=== PATIENT | male | born 1970 | race Two or more races ===

== ENCOUNTER 2024-11-27 16:18 | Emergency (ER) | payer MEDICAID, SELFPAY ==
[2024-11-27 16:18] VITALS: BMI 26.2
[2024-11-27 16:30] VITALS: BP 188/104; BP 192/99; PULSE 63; RESP 18; TEMP 36.7; O2SAT 95; BMI 25.5
--- NOTE | 2024-11-27 16:45 | PD.EDSKIN ---
ED Skin Abcess FB-RME/HPI General Chief complaint: Skin/Abscess/Foreign Body Stated complaint: LEFT EYE FOREIGN BODY Time Seen by Provider: 11/27/24 16:39 Arrival date/time: 11/27/24 16:18 RME / HPI RME / HPI narrative: 54-year-old male patient came in for evaluation regarding foreign body sensation, left eye. Patient was helping his brother putting something on the trees, and something went into the left eye, resulting into a foreign body sensation severity moderate. Patient denies any blurry vision denies any headache denies any other complaints incident happened about 2 hours prior to ER visit. Related Data Home Medications ?Medication ?Instructions ?Recorded ?Confirmed lisinopril 40 mg tablet 40 mg DAILY 09/21/23 09/21/23 metformin 1,000 mg tablet 1,000 mg BID 09/21/23 09/21/23 Previous Rx's ?Medication ?Instructions ?Recorded sulfamethoxazole 800 1 tab PO BID #14 tabs 09/21/23 mg-trimethoprim 160 mg tablet (Bactrim DS) ibuprofen 600 mg tablet 600 mg PO Q8H PRN fever or pain 11/29/23 #20 tabs Allergies Allergy/AdvReac Type Severity Reaction Status Date / Time No Known Allergies Allergy Verified 11/27/24 16:20 Review of Systems Review of Systems Narrative Review of Systems: Review of system reviewed and within normal limits except mentioned in HPI ED Exam Narrative Physical exam: VITAL SIGNS: Reviewed. GENERAL APPEARANCE: Alert and interactive, follows commands, no acute distress, HEAD AND FACE: Non-traumatic. ENT: PERRL, pink conjunctivitis, eyelid no trauma, Mucous membrane moist. NECK: Supple, nontender, no nuchal rigidity. CHEST: No tenderness, no crepitus, no paradoxical movement, no retractions. LUNGS: Clear, well ventilated, symmetric, no rales, no wheezing, no ronchi, no stridor, good breath sounds bilaterally. HEART: Regular rate, regular rhythm, no murmur, no gallops. ABDOMEN: Soft, positive bowel sounds, nondistended, no guarding, nontender, no rebound, no masses, RECTAL: Deferred. GENITAL: Deferred. NEUROLOGICAL: Gross motor function intact sensory function intact, Appropriate for age. MUSCULOSKELETAL: low back nontender, full range of motion. EXTREMITIES: Nontender, full range of motion. SKIN: Color pink, dry, no rash, no lacerations, no abrasions, no contusions. LYMPHATICS: Deferred. Course Quality Measures none Orders Category Date Time Status Fluorescein-Benoxin 0.3%-0.4% Med 11/27/24 16:44 Discontinued 2 drop LEFT EYE X1 ONE Ibuprofen Tab [Motrin Tab] Med 11/27/24 16:44 Discontinued 800 mg PO X1 ONE TETRACAINE Op Leonie 0.5% [Pontocaine Op Leonie 0.5%] Med 11/27/24 16:44 Discontinued 1 drop LEFT EYE X1 ONE hydrALAZINE HCL [Apresoline] Med 11/27/24 16:45 Discontinued 25 mg PO X1 ONE Vital Signs Vital signs: Vital Signs Temperature 98.1 F 11/27/24 16:30 Pulse Rate 63 11/27/24 16:30 Respiratory Rate 18 11/27/24 16:30 Blood Pressure 192/99 H 11/27/24 16:30 Pulse Oximetry (%) 95 11/27/24 16:30 Oxygen Delivery Method Room Air 11/27/24 16:30 Skin / Abscess / Foreign Body MDM Narrative MDM Narrative:: 54-year-old male patient came in for evaluation regarding foreign body sensation, left eye. Patient was helping his brother putting something on the trees, and something went into the left eye, resulting into a foreign body sensation severity moderate. Patient denies any blurry vision denies any headache denies any other complaints incident happened about 2 hours prior to ER visit. Eye was examined under the Gomez lamp. Tetracaine ophthalmic drop was administered to the eye and fluorescein strip was applied and was then illustrated under the Gomez lamp. No Abrasion noted, , no foreign body noted, Eye was then irrigated with copious amounts of eye stream. Procedure was well tolerated by patient. Verbalized understanding. Patient stable for discharge home was advised to follow-up with PCP and for referral to eyelet punch operator for persistent eye discomfort. Patient data External records reviewed:: None Clinical information provided by:: patient Social determinants that could affect healthcare access:: none Patient has the following chronic illnesses:: Hypertension, diabetes mellitus How is presenting disease/condition affected by chronic disease/condition?: exacerbated by Evaluation data The following diagnostics were reviewed and interpreted by me:: other (specify) Lab and/or radiology exams considered but not ordered:: none Interpretation Summary: none Medications / Prescriptions Medications or Prescriptions considered but not ordered:: None Medication administrations:: Medication Administration History Discontinued Medications Fluorescein Sodium/Benoxinate HCl (Fluorescein-Benoxin 0.3%-0.4% 1 Drop) 2 drop LEFT EYE X1 ONE Stop: 11/27/24 16:45 Last Admin: 11/27/24 17:01 Dose: 2 drop Documented By: SANGEETHA Comments: USED BY PROVIDER Hydralazine HCl (Hydralazine Hcl 25 Mg Tablet) 25 mg PO X1 ONE Stop: 11/27/24 16:46 Last Admin: 11/27/24 17:01 Dose: 25 mg Documented By: SANGEETHA Ibuprofen (Ibuprofen Tab 400 Mg Tablet) 800 mg PO X1 ONE Stop: 11/27/24 16:45 Last Admin: 11/27/24 17:01 Dose: 800 mg Documented By: SANGEETHA Tetracaine HCl (Tetracaine Pf Op Leonie 0.5% 4 Ml Drpette) 1 drop LEFT EYE X1 ONE Stop: 11/27/24 16:45 Last Admin: 11/27/24 17:00 Dose: 1 drop Documented By: SANGEETHA Comments: USED BY PROVIDER Hydralazine, ibuprofen Consultations Consultation(s) initiated? (list below): No Diagnosis Skin/Abscess Differential Diagnosis: other (Foreign body cornea, no foreign body noted on examination, foreign body sensation eye) Most likely diagnosis given after review of the tests above:: Foreign body sensation eye Admission Indicated Admission indicated?: not indicated Admission Request Was there a request for admission?: No Disposition Plan Disposition Plan: Discharge Discharge Attestation Discharge Attestation: The patient was given an opportunity to ask questions and understood the discharge instructions. Discharge instructions specifically effects, indications for sooner follow up or return to the emergency department, and the expected course of current diagnosis. Patient condition: Stable Discharge Plan Plan Patient Disposition: HOME (Self Care) Discharge Disposition comment: Stable Prescriptions/Referrals Prescriptions/Med Rec: No Action metformin 1,000 mg tablet 1,000 mg BID Patient Comments: take 1 tablet by mouth twice a day lisinopril 40 mg tablet 40 mg DAILY Patient Comments: take 1 tablet by mouth once daily sulfamethoxazole-trimethoprim [Bactrim DS] 800-160 mg tablet 1 tab PO BID Qty: 14 0RF ibuprofen 600 mg tablet 600 mg PO Q8H PRN (Reason: fever or pain) Qty: 20 0RF Referrals: No Primary/Family,Physician [Primary Care Provider] - In 1 week Problem List Clinical Impression: Foreign body sensation, left eye Patient/Caregiver Discharge Instructions Discharge Activity: activity as tolerated Education Materials: How the Eye Works Additional Instructions: Thank you for the opportunity for serving you today. You are stable for discharged . You are advised to: Follow-up with your PCP in 1 to 2 days Return to ED for worsening of symptoms As your PCP to refer you to ships or barges loader if your symptoms is getting worst Print Language: Luxembourgish Stand Alone Forms: Sabina Award Info., Patient Portal Info Letter PA/FORENSIC ANTHROPOLOGIST Supervising Physician PA/FORENSIC ANTHROPOLOGIST Supervising Physician: MD Janell
[2024-11-27] MEDS: TETRACAINE PF OP SOL 0.5% 4 ML DRPETTE 1 DROP LEFT EYE (17:00)
[2024-11-27 17:01] VITALS: BP 178/93; PULSE 64
[2024-11-27] MEDS: IBUPROFEN TAB 400 MG TABLET 800 MG PO (17:01)
[2024-11-27] MEDS: FLUORESCEIN-BENOXIN 0.3%-0.4% 1 DROP 2 DROP LEFT EYE (17:01)
--- NOTE | 2024-11-27 17:33 | PC.NURSE ---
Patient called for discharge at this time not present in the lobby
--- NOTE | 2024-11-27 17:50 | PC.NURSE ---
patients name was called again in the lobby no response
--- NOTE | 2024-11-27 18:01 | PC.NURSE ---
patients name was called in the lobby no response
== END 2024-11-27 18:02 | disposition home or self-care (01) ==
PROVIDERS: Emergency Provider Emergency Medicine
DX: H57.8A2 Foreign body sensation, left eye (principal)
CPT/HCPCS: 99283; Z7110; A9270; Z7610

== ENCOUNTER 2025-03-11 05:47 | Observation (INO) | payer MEDICAID, SELFPAY ==
[2025-03-11] VITALS (7 sets, daily range): BP systolic 128–164; BP diastolic 75–100; PULSE 49–82; RESP 14–99; TEMP 36.3–36.8; O2SAT 98–100; BMI 25.7; BMI 25.0
--- NOTE | 2025-03-11 06:19 | EKG_ITS ---
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
--- NOTE | 2025-03-11 06:26 | XR_ITS ---
Examination: CT abdomen with intravenous contrast CT pelvis with intravenous contrast 2-D coronal reconstructions 2-D sagittal reconstructions Date and time of exam: March 11, 2025, 0729 hours INDICATIONS: Abdominal pain lower abdominal pain nausea beginning today.. CTDI: vol (mGy) 6.29 DLP: (mGycm) 375 Technique: Multiple axial sections of the abdomen and pelvis have been obtained. 64 slice high-resolution scanner used. 3 mm axial sections have been obtained, post intravenous injection 60 cc [id number] 2-D sagittal, coronal reconstructions obtained. Low dose protocols were performed. One or more of the following dose reduction techniques were used; automated exposure control, adjustment of the mA and/or KV according to patient size, use of iterative reconstruction technique. Findings: No visualized liver lesions No gallstones Trace fluid adjacent to the spleen with 7 mm splenic cyst No pancreatic or adrenal mass No renal or ureteral calculi, no hydronephrosis Multiple fluid distended small bowel loops with edema in the mesentery Mild free fluid in the pelvis Prostate calcifications Normal seminal vesicles Contracted urinary bladder Chronic wedging L2, advanced degenerative disc disease L4-L5 No pericecal inflammatory change IMPRESSION: Small bowel obstruction pattern, there is edema in the mesentery, and fluid in the pelvis, early ischemic small bowel not excluded, clinical correlation advised, recommend surgical consultation
[2025-03-11] MEDS: ONDANSETRON ODT 4 MG TABRAP PO (06:29)
[2025-03-11] MEDS: HYDROcodone/APAP 5/325 TABLET 1 TAB PO ×2 (06:30→16:02)
--- NOTE | 2025-03-11 06:34 | EDNOTE_ITS ---
<Statement entered by Kira Zepeda MD - 03/11/25 17:52> I, Kira Zepeda MD, have reviewed the history, exam, and assessment of the patient. I have evaluated the patient independently and agree with the plan of care documented by [ ]. All diagnostic studies were reviewed and discussed. I confirm the diagnosis as documented by the Resident. I was present during the Medical Decision Making for this patient. The patient's plan of care was created between myself and the Resident and consistent with our discussion of the patient's case. ED Abdominal Pain RME/HPI General Chief Complaint: Abdominal Pain Stated complaint: ABDOMINAL PAIN Time seen by provider: 03/11/25 06:17 Arrival date/time: 03/11/25 05:47 RME / HPI RME / HPI narrative: CC: Abdominal Pain Patient is a a 54 year old male with a past medical history of HTN, HLD, and GERD who presented to the emergency via private vehicle with chief complain of abdominal pain. Abdominal pain is diffuse but can be localized to right upper quadrant and right lower quadrant. Positive for nausea. Denied rash on abdomen. No hematochezia or melena in stool. Last bowel movement this morning that appeared soft. No diarrhea. No Melena. No Hematochezia. No previous abdominal surgical history. No colonoscopy. Denied history of illicit drug use or alcohol use. Related Data Home Medications ?Medication ?Instructions ?Recorded ?Confirmed lisinopril 40 mg tablet 40 mg PO DAILY 09/21/2309/28 metformin 1,000 mg tablet 1,000 mg PO BID 09/21/2309/28 Allergies Allergy/AdvReac Type Severity Reaction Status Date / Time No Known Allergies Allergy Verified 11/27/24 16:20 Review of Systems Review of Systems Narrative Review of Systems: General appearance: NO weight change, NO fatigue, NO weakness, NO fever, NO chills, NO night sweats, No cough Skin: NO rash, NO itching, NO sores, NO moles HEENT: NO Trauma, NO nausea, NO vomiting, NO visual changes, NO blurry vision, NO double vision, NO tinnitus, NO vertigo, NO ear discharge, NO rhinorrhea, NO stuffiness, NO sneezing, NO allergy, NO epistaxis. NO Hoarseness, NO sore throat, NO swollen neck. Cardiac: NO Palpitations, NO dyspnea on exertion, NO orthopnea, NO paroxysmal nocturnal dyspnea, NO edema Respiratory: NO Shortness of Breath, NO Wheezing, NO Cough, NO Sputum, NO hemoptysis GI:NO appetite, YES nausea, NO vomiting, NO dysphagia, NO changes in bowel frequency, NO stool color, NO diarrhea, NO constipation, NO hemetemesis, NO hemorrhoids, NO melena, NO hematechezia, Yes abdominal pain, NO jaundice Renal: NO frequency, NO hesitancy, NO urgency, NO hematuria, NO nocturia, NO incontinence MSK: NO muscle weakness, NO gout, NO arthritis, NO muscle stiffness Neuro: NO headaches, NO tremors, NO weakness, NO paralysis, NO seizures, NO loss of consciousness, NO numbness. Hem: NO anemia, NO easy bruising/bleeding, NO petechiae, NO purpura Endo: NO heat/cold intolerance, NO excessive sweating, NO polyuria, NO polydipsia, NO polyphagia, NO thyroid problems, NO diabetes Pysch: NO mood, NO anxiety, NO depression ED Exam Narrative Physical exam: General Appearance: Alert & Oriented X3, well-nourished male who is lying in bed in mild distress HEENT: Skull symmetrical and atraumatic. Conjunctivae pink and moist. Pupils equal, round, reactive to light and accommodation (PERRL). External ear without lesion or discharge. Cardio: Normal Rate and Rhythm with S1 and S2 heart sounds. No murmurs or extra heart sounds auscultated. No bruits on carotid auscultation. No peripheral edema or cyanosis. Lungs: Symmetric with good expansion. Chest and back non-tender. Breath sounds vesicular without crackles, wheezing or rhonchi Abdomen: Diffuse tenderness, right upper quadrant pain, mild distended, hyperactive Reactive Bowel Sounds Neuro: Alert, cooperative, oriented to person, place, and time. Speech clear. CN grossly intact. Upper motor strength 5/5 and Lower motor strength 5/5. Sensation intact. Course Quality Measures none Orders Category Date Time Status Patient Condition Routine Admission 03/11/25 11:[address] in Observation Status Routine Admission 03/11/25 11:50 Active Activity as Tolerated Routine Care 03/11/25 11:[address] Screening NOW Care 03/11/25 06:28 Active EKG (ED ONLY) *Do not use* NOW Care 03/11/25 06:19 Completed IV [Insert IV] NOW Care 03/11/25 07:08 Active NPO NOW Care 03/11/25 10:55 Active Notify provider NEEDED Care 03/11/25 11:49 Active Diet NPO (NOW) Diet 03/11/25 10:[address] abdomen pelvis w con Stat Exams 03/11/25 06:26 Completed EKG (ED Only) Stat Exams 03/11/25 06:19 Draft US gall bladder Stat Exams 03/11/25 08:29 Completed Alcohol, Urine Stat Lab 03/11/25 07:25 Completed Amylase Stat Lab 03/11/25 06:47 Completed CBC Stat Lab 03/11/25 06:47 Completed CRP [C-Reactive Protein] Routine Lab 03/11/25 09:42 Completed Comprehensive Metabolic Panel Stat Lab 03/11/25 06:47 Completed Drug Screen,Urine Stat Lab 03/11/25 07:25 Completed Lactic Acid [Lactate (Lactic Acid)] Stat Lab 03/11/25 09:42 Completed Lipase Stat Lab 03/11/25 06:47 Completed Magnesium Stat Lab 03/11/25 06:47 Completed Partial Thromboplastin Time Stat Lab 03/11/25 06:47 Completed Procalcitonin Routine Lab 03/11/25 09:42 Completed Prothrombin Time with INR Stat Lab 03/11/25 06:47 Completed Troponin I Stat Lab 03/11/25 06:47 Completed Urinalysis, C/S if Indicated Stat Lab 03/11/25 07:25 Completed Urine Culture Stat Lab 03/11/25 07:25 Received HYDROcodone*/APAP 5/325 [[place] 5/325] Med 03/11/25 06:20 Discontinued 1 tab PO X1 ONE Ondansetron Inj [Zofran Inj] Med 03/11/25 07:26 Active 4 mg IVP Q8HR PRN Ondansetron Odt [Zofran Odt] Med 03/11/25 06:22 Discontinued 4 mg PO X1 ONE Piper/Tazo 3.375 gm Premix [Zosyn] Med 03/11/25 09:05 Discontinued 3.375 gm in 50 ml IV X1 Ringers Lactated 1000 ml [Lactated Ringers] 1,000 ml Med 03/11/25 12:00 Active IV 75 mls/hr Ringers Lactated 1000 ml [Lactated Ringers] 1,000 ml Med 03/11/25 07:47 Discontinued IV 999 mls/hr Code Status Routine Oth 03/11/25 11:49 Ordered Oxygen Delivery PRN RT 03/11/25 11:49 Active Vital Signs Vital signs: Vital Signs Temperature 97.4 F 03/11/25 05:50 Pulse Rate 64 03/11/25 05:50 Respiratory Rate 16 03/11/25 05:50 Blood Pressure 134/89 H 03/11/25 05:50 Pulse Oximetry (%) 99 03/11/25 05:50 Oxygen Delivery Method Room Air 03/11/25 05:50 Abdominal Pain MDM Patient data External records reviewed:: [facility] previous records Clinical information provided by:: patient Social determinants that could affect healthcare access:: none Patient has the following chronic illnesses:: HTN and HLD How is presenting disease/condition affected by chronic disease/condition?: uneffected by Evaluation data The following diagnostics were reviewed and interpreted by me:: lab results, radiology exam(s) and EKG tracing(s) Lab and/or radiology exams considered but not ordered:: none Interpretation Summary: concern for SBO given CT images and now hyperactive bowel sounds, patient denied history of emesis this morning, and small soft stool this morning. Elevated WBC. - The patient's plan was discussed with attending Dr. Duane Castillo MD PGY2 Internal Medicine Medications / Prescriptions Medications or Prescriptions considered but not ordered:: none Medication administrations:: Medication Administration History Acetaminophen (Acetaminophen 325 Mg Tablet) 650 mg PO Q6H PRN PRN Reason: Fever >100.4 or Pain 1-6 Stop: 04/10/25 11:50 Hydrocodone Bitart/Acetaminophen (Hydrocodone/Apap 5/325 Tablet) 1 tab PO Q8HR PRN PRN Reason: PAIN SCALE 7-10 (Moderate Stop: 03/16/25 11:50 Last Admin: 03/11/25 16:02 Dose: 1 tab Documented By: Enoxaparin Sodium (Enoxaparin Sod Inj 40 Mg/0.4 Ml Syringe) 40 mg SC QDAY [facility] Stop: 03/26/25 08:59 Lactated Ringer's (Lactated Ringers) 1,000 mls @ 75 mls/hr IV .[id number] [facility] Stop: 03/12/25 11:59 Last Admin: 03/11/25 12:06 Dose: 75 mls/hr Documented By: JUAN MANUEL Ondansetron HCl (Ondansetron Inj 2 Mg/Ml Inj 2 Ml) 4 mg IVP Q8HR PRN; Protocol PRN Reason: NAUSEA OR VOMITING Stop: 04/10/25 07:25 Pantoprazole Sodium (Pantoprazole Inj 40 Mg Vial) 40 mg IVP QDAY HANNA Stop: 04/11/25 08:59 Discontinued Medications Hydrocodone Bitart/Acetaminophen (Hydrocodone/Apap 5/325 Tablet) 1 tab PO X1 ONE Stop: 03/11/25 06:21 Last Admin: 03/11/25 06:30 Dose: 1 tab Documented By: BRIGETTE Lactated Ringer's (Lactated Ringers) 1,000 mls @ 999 mls/hr IV .Q1H1M ONE Stop: 03/11/25 08:47 Last Infusion: 03/11/25 10:58 Dose: Infused Documented By: JUAN MANUEL Admin: 03/11/25 08:19 Dose: 999 mls/hr Documented By: AMBAR Piperacillin/Tazobactam/Dextrose (Zosyn) 3.375 gm in 50 mls @ 100 mls/hr IV X1 ONE; Protocol Stop: 03/11/25 09:34 Last Infusion: 03/11/25 10:58 Dose: Infused Documented By: JUAN MANUEL Admin: 03/11/25 10:01 Dose: 100 mls/hr Documented By: NICHOLAS Ondansetron HCl (Ondansetron Odt 4 Mg Tabrap) 4 mg PO X1 ONE; Protocol Stop: 03/11/25 06:23 Last Admin: 03/11/25 06:29 Dose: 4 mg Documented By: BRIGETTE same above Consultations Consultation(s) initiated? (list below): No Diagnosis Differential diagnosis abdominal pain: abdominal pain, acute appendicitis, diverticulitis, pancreatitis, small bowel obstruction and other Most likely diagnosis given after review of the tests above:: Concern for small bowel obstruction given images and hyperactive bowel sounds. Admission Indicated Admission indicated?: indicated Admission Request Was there a request for admission?: Yes Admission Attestation Admission request attestation: Discussed case with Dr. Muñoz, PGY-3, from Hospitalist service regarding admission. Discussed patients ED course, exam findings, labs, and radiology results. The Hospitalist agrees to accept the patient for admission. Disposition Plan Disposition Plan: Admit Discharge Plan Plan Patient Disposition: Admit Acute Care w/in Hospital Problem List Clinical Impression: Small bowel obstruction
[2025-03-11 06:57] LABS: Basophils # (Auto) 0.1 Thou/mm3 (0.0-0.2); Basophils % (Auto) 0 % (0-2.5); Eosinophils # (Auto) 0.2 Thou/mm3 (0.0-0.5); Eosinophils % (Auto) 1 % (0-10); Hematocrit 41.2 % (41.0-53.0); Hemoglobin 13.4 g/dL (13.5-16.0); Immature Granulocytes Auto 0.05 Thou/mm3 (0.00-0.00); Lymphocytes # (Auto) 2.6 Thou/mm3 (1.0-4.8); Lymphocytes % (Auto) 18 % (10-50); Mean Corpuscular HGB Conc 32.5 g/dl (31.0-37.0); Mean Corpuscular Hemoglobin 27.5 pg (25.0-35.0); Mean Corpuscular Volume 85 fL (80-100); Monocytes # (Auto) 0.9 Thou/mm3 (0.0-0.8); Monocytes % (Auto) 6 % (0-12); Neutrophils # (Auto) 10.5 Thou/mm3 (1.8-7.7); Neutrophils % (Auto) 74 % (37-80); Nucleated Red Blood Cell # 0.00 Thou/mm3 (0.00-0.00); Nucleated Red Blood Cell % 0 /100 WBC (0); Platelet Count 457 Thou/mm3 (140-440); RDW Standard Deviation 42.3 fL (35.1-43.9); Red Blood Count 4.87 Miln/mm3 (4.50-5.90); White Blood Count 14.3 Thou/mm3 (3.8-10.6)
[2025-03-11 07:13] LABS: INR 1.0 (0.9-1.3); Partial Thromboplastin Time 21.9 Seconds (22.0-36.0); Prothrombin Time 10.2 Seconds (9.0-12.2)
[2025-03-11 07:16] LABS: Alanine Aminotransferase 13 U/L (10-49); Albumin, Serum 4.9 gm/dL (3.5-5.0); Albumin/Globulin Ratio 2.2 (1.2-2.2); Alkaline Phosphatase 122 U/L (46-116); Amylase 80 U/L (30-118); Anion Gap 10 (7-16); Aspartate Amino Transferase 15 U/L (0-34); BUN/Creatinine Ratio 17 Ratio (12-20); Bilirubin,Total 0.3 mg/dL (0.3-1.2); Blood Urea Nitrogen 17 mg/dL (9-23); Calcium 10.4 mg/dL (8.3-10.6); Calcium (Corrected) 10.4 mg/dL (8.5-10.1); Carbon Dioxide 29.1 mMol/L (20.0-31.0); Chloride 101 mMol/L (98-107); Creatinine (Component) 1.0 mg/dL (0.6-1.3); Estimated Creatinine Clearance 74.3 mL/min (>60); Globulin 2.2 gm/dL (2.3-3.5); Glucose 207 mg/dL (74-106); Lipase 32 U/L (12-53); Magnesium 2.0 mg/dL (1.6-2.6); Osmolality,Calculated 286 (275-295); Potassium 4.6 mMol/L (3.4-5.1); Sodium 140 mMol/L (136-145); Total Protein 7.1 gm/dL (5.7-8.2); Troponin I < 0.002 ng/mL (0.0-0.045); eGFR > 60 See Note
[2025-03-11 08:13] LABS: Collection Type, Urine Clean Catch
[2025-03-11 08:19] LABS: Bilirubin,Urine Negative (Negative); Blood,Urine Negative (Negative); Clarity,Urine Clear (Clear/Hazy); Color,Urine Yellow (Lt Yel-Yel); Glucose, Urine Negative (Negative); Ketones,Urine Negative (Negative); Leukocyte Esterase,Urine Positive (Negative); Nitrite,Urine Negative (Negative); PH,Urine 5.5 (5.0-7.0); Protein,Urine 1+ (Neg - Trace); RBC,Urine 3 /hpf (0-3); Specific Gravity,Urine 1.036 (1.001-1.035); Squamous Epithelial Cell,Urine < 1 /hpf (0-5); Urobilinogen,Urine Negative mg/dL (0.0-1.0); WBC,Urine 12 /hpf (0-5)
[2025-03-11] MEDS: RINGERS LACTATED 1000 ML 1,000 ML 999 ML IV (08:19)
[2025-03-11 08:21] LABS: Culture Indicated,Urine Yes
--- NOTE | 2025-03-11 08:29 | XR_ITS ---
Examination: Abdomen sonogram, Limited Date and time of exam: 03/11/2025, 9:06 a.m. INDICATION: Right upper quadrant pain today. Comparison same day CT abdomen pelvis Technique: Real-time hassan scale transabdominal sonographic images of the upper abdomen obtained. Findings: Gallbladder: The gallbladder is well distended which could be due to fasting state. Normal variant phrygian cap identified. No gallstones identified. Likely artifact mimicking sludge on several images. No significant gallbladder wall thickening or pericholecystic fluid. No reported pain with direct transducer pressure over the gallbladder. The common bile duct measures 3 cm. No abnormal intrahepatic bile duct dilatation. Hepatic size is within normal limits, measured at 14.8 cm in length. The liver demonstrates mild diffuse increased echotexture. The liver exhibits smooth margins. No discrete focal lesion identified. Color Doppler demonstrates patency of the main portal vein with normal hepatopetal flow. Color Doppler shows flow in hepatic veins and IVC as well. Limited views of the pancreas show no focal or diffuse abnormalities. The right kidney appears normal. IMPRESSION: Negative ultrasound for cholelithiasis, acute cholecystitis or biliary ductal obstruction. Mild diffusely increased hepatic echotexture is nonspecific but most likely policy services representative of hepatic steatosis. No evidence for hepatomegaly or liver mass.
[2025-03-11 08:30] LABS: Alcohol, Urine Negative (Negative); Amphetamine/Methamp Scrn,U Negative (Negative); Barbiturate Screen,Urine Negative (Negative); Benzodiazepines Screen,Urine Negative (Negative); Benzoylecgonine Screen, Ur Negative (Negative); Fentanyl Screen,Urine Negative (Negative); Opiate Screen,Urine Negative (Negative); THC Screen,Urine Negative (Negative)
[2025-03-11 09:45] LABS: Lactate (Lactic Acid) 1.4 mMol/L (0.4-2.0)
[2025-03-11] MEDS: PIPER/TAZO 3.375 GM PREMIX 3.375 GM/50 ML BAG IV (10:01)
[2025-03-11 10:21] LABS: C-Reactive Protein < 0.5 mg/dL (0.0-0.9); Procalcitonin 0.04 ng/ml (0.0-0.49)
--- NOTE | 2025-03-11 11:56 | XR_ITS ---
X-RAY SMALL BOWEL SINGLE CONTRAST HISTORY: SBO, follow-up Study date and time: 03/11/2025 at 12:35 p.m. COMPARISON: Same-day CT abdomen pelvis FINDINGS: 5 AP supine images of the abdomen were obtained after contrast ministration, one immediately after contrast, 2 at 30 minutes and 2 at 1 hour. Immediate postcontrast images show normal opacification of stomach, duodenum and proximal jejunum, without focal obstructing lesion or ulcer. In the background, there is moderate to large extensive colonic fecal matter. Images obtained at 30 minutes show progression of contrast in small bowel, visualized in the right lower quadrant and pelvis, with dilated bowel loops identified in these regions, correlating with the preceding CT findings. At 1 hour, there is no significant change in the size and extent of opacified bowel in the lower abdomen and pelvis, but the contrast from the gastric fundus has emptied and there is more small bowel opacification in the mid abdomen. Contrast opacified distended small bowel obscures evaluation of the proximal ascending colon. Follow-up imaging is recommended. IMPRESSION: Findings consistent with partial small bowel obstruction. Contrast is not yet definitively visualized within the ascending colon at 1 hour. A repeat 1 hour abdominal radiograph is recommended. This report was generated using speech recognition software.
[2025-03-11] MEDS: RINGERS LACTATED 1000 ML 1,000 ML 75 ML IV (12:06)
--- NOTE | 2025-03-11 14:13 | ESHP_ITS ---
<Statement entered by Marline Muñoz MD - 03/12/25 07:37> Patient was seen and examined by me personally. I have directly supervised and reviewed documentation by the team resident and agree with its findings with any exceptions or additional findings as below. Plan of care was discussed with the attending, Dr. Perez. New admission today. Patient is a 54-year-old male with hypertension, eoh-wfjyhze-rhpnhibsm T2DM, hyperlipidemia, and GERD who presented on 03/11/25 with a chief complaint of abdominal pain. CT abdomen/pelvis showed small bowel obstruction pattern. Discussed with general surgery Dr. Nuñez, clinically the patient does not appear to be having ischemic bowel. Patient had a bowel movement this morning and states he is passing gas. Will admit for observation and complete gastrograffin series. Marline Muñoz, PGY-3 Documentation for date of: 03/11/25 HPI History of Present Illness History of present illness: Patient is a 54-year-old male with a PMH of hypertension, uwr-qdhklso-smhmeavfm T2DM, hyperlipidemia, and GERD who presented on 03/11/25 with a chief complaint of abdominal pain that started earlier in the morning. At the time of interview, patient actually reported feeling much better and rated his abdominal pain as a 0 out of 10 in severity (was a 10 out of 10 upon admission). Patient states that his previous abdominal pain was primarily localized to the lower abdominal quadrants and characterized as constant and pressured in nature. He also endorses vomiting twice before coming to the ED and that his last bowel movement had been around 5 in the morning which produced soft, brown, and low- volume stool. While waiting in the ED, patient reports that he has been able to pass flatus. He denies any other symptoms or complaints. PMH: As above PSH: None Medications: Metformin 1000 mg p.o. twice daily, lisinopril 40 mg p.o. daily Allergies: NKDA FH: Mother from colon cancer, and dad passed from an unspecified cardiac condition during COVID, both parents had a history of T2DM and hypertension SH: No significant drinking, smoking, or recreational drug use history In the ED, vitals showed: BP 134/89 HR 64 RR 16 Temp 97.4 SpO2 99% on room air CBC showed WBC 14.3, hemoglobin 13.4, platelet count 457. Coagulation panel was WNL. CMP showed blood glucose 207, corrected calcium 10.4, but was otherwise WNL (including amylase, lipase, and procalcitonin). UA showed 1+ protein, positive leukocyte esterase, 12 urine WBC. UDS was grossly negative. Imagin/5 CTAP showed edema in the mesentery and fluid in the pelvis, possibly suggestive of small bowel obstruction. 03/11 EKG showed sinus bradycardia HR 53 and normal QTc 389. 03/11 gallbladder ultrasound showed mild diffusely increased hepatic echotexture (nonspecific but may represent hepatic steatosis), but was negative for cholelithiasis, acute cholecystitis, biliary ductal obstruction, hepatomegaly, or liver mass. 03/11 small bowel x-ray showed findings consistent with partial small bowel obstruction 1 hour into the study. 03/11 abdominal x-ray showed that most of the contrast had reached the colon after 2.5 hours which is negative for small bowel obstruction. In the ED, patient was given Zofran p.o., Erin p.o., Zosyn IV, and 2 L LR fluid. Patient was admitted for the observation and possible management of abdominal pain concerning for small bowel obstruction. Review of Systems Review of Systems Systems Reviewed: All systems reviewed, normal except as documented Exam Vital Signs Temp Pulse Resp BP Pulse Ox O2 Del Method 97.7 F 64 19 159/100 H 100 Room Air 03/11/25 13:03 03/11/25 13:03 03/11/25 13:03 03/11/25 13:03 03/11/25 13:03 03/11/25 13:03 Narrative Exam General: A/O x3, no acute distress. Skin: Warm, dry, intact, no obvious rash. Head: Normocephalic, atraumatic. Eyes: EOMI. Anicteric, vision grossly intact. Ears: No ear pain, no ear discharge, Hearing grossly intact. Nose: No nasal discharge. Mouth/Throat: Oral mucosa moist. No obvious lesions in oropharynx. Cardiovascular: Slightly bradycardic rate and normal rhythm, no murmur, no JVD or carotid bruits. +S1/S2. Respiratory: Bilateral lungs are clear to auscultation, respirations unlabored, no crackles, no wheezing. No accessory muscle use. Gastrointestinal: Hyperactive bowel sounds. Tenderness to palpation of lower abdominal quadrants, particularly the right lower quadrant. Guarding noted. Soft, non-distended, no palpable masses. No rebound tenderness. Peristalsis present. Extremities: Symmetrical, no significant deformities. No edema, no cyanosis, no clubbing. 2+ radial pulse bilaterally, 2+ posterior tibial pulse bilaterally. Neuro: No focal deficits observed. Conversant, moving all extremities. No overt cerebellar signs/incoordination. Psychiatric: Cooperative, appropriate affect. Results: Labs 03/11/25 06:47 03/11/25 06:47 Labs: Short CBC 03/11/25 Range/Units 06:47 WBC 14.3 H (3.8-10.6) Thou/mm3 Hgb 13.4 L (13.5-16.0) g/dL Hct 41.2 (41.0-53.0) % Plt Count 457 H (140-440) Thou/mm3 BMP 03/11/25 06:47 Sodium 140 Potassium 4.6 Chloride 101 Carbon Dioxide 29.1 BUN 17 Creatinine 1.0 Glucose 207 H Calcium 10.4 Cardiac Enzymes 03/11/25 Range/Units 06:47 Troponin I < 0.002 (0.0-0.045) ng/mL Liver Function 03/11/25 Range/Units 06:47 Total Bilirubin 0.3 (0.3-1.2) mg/dL AST 15 (0-34) U/L ALT 13 (10-49) U/L Alkaline Phosphatase 122 H (46-116) U/L Albumin 4.9 (3.5-5.0) gm/dL Urine 03/11/25 Range/Units 07:25 Urine Color Yellow (Lt Yel-Yel) Urine Clarity Clear (Clear/Hazy) Urine pH 5.5 (5.0-7.0) Ur Specific [place] 1.036 H (1.001-1.035) Urine Protein 1+ A (Neg - Trace) Urine Glucose (UA) Negative (Negative) Quality Measures Quality Measures none Medications Home Medications and Allergies Home Medications ?Medication ?Instructions ?Recorded ?Confirmed ?Type lisinopril 40 mg tablet 40 mg PO DAILY 09/21/2309/28 History metformin 1,000 mg tablet 1,000 mg PO BID 09/21/2309/28 History Allergies Allergy/AdvReac Type Severity Reaction Status Date / Time No Known Allergies Allergy Verified 11/27/24 16:20 Visit Medications Acetaminophen (Acetaminophen 325 Mg Tablet) 650 mg PO Q6H PRN PRN Reason: Fever >100.4 or Pain 1-6 Stop: 04/10/25 11:50 Hydrocodone Bitart/Acetaminophen (Hydrocodone/Apap 5/325 Tablet) 1 tab PO Q8HR PRN PRN Reason: PAIN SCALE 7-10 (Moderate Stop: 03/16/25 11:50 Enoxaparin Sodium (Enoxaparin Sod Inj 40 Mg/0.4 Ml Syringe) 40 mg SC QDAY [facility] Stop: 03/26/25 08:59 Lactated Ringer's (Lactated Ringers) 1,000 mls @ 75 mls/hr IV .[id number] HANNA Stop: 03/12/25 11:59 Last Admin: 03/11/25 12:06 Dose: 75 mls/hr Ondansetron HCl (Ondansetron Inj 2 Mg/Ml Inj 2 Ml) 4 mg IVP Q8HR PRN; Protocol PRN Reason: NAUSEA OR VOMITING Stop: 04/10/25 07:25 Pantoprazole Sodium (Pantoprazole Inj 40 Mg Vial) 40 mg IVP QDAY [facility] Stop: 04/11/25 08:59 Discontinued Medications Hydrocodone Bitart/Acetaminophen (Hydrocodone/Apap 5/325 Tablet) 1 tab PO X1 ONE Stop: 03/11/25 06:21 Last Admin: 03/11/25 06:30 Dose: 1 tab Lactated Ringer's (Lactated Ringers) 1,000 mls @ 999 mls/hr IV .Q1H1M ONE Stop: 03/11/25 08:47 Last Infusion: 03/11/25 10:58 Dose: Infused Piperacillin/Tazobactam/Dextrose (Zosyn) 3.375 gm in 50 mls @ 100 mls/hr IV X1 ONE; Protocol Stop: 03/11/25 09:34 Last Infusion: 03/11/25 10:58 Dose: Infused Ondansetron HCl (Ondansetron Odt 4 Mg Tabrap) 4 mg PO X1 ONE; Protocol Stop: 03/11/25 06:23 Last Admin: 03/11/25 06:29 Dose: 4 mg Assessment & Plan Plan Patient is a 54-year-old male with a PMH of hypertension, phh-rprdyav-minytixap T2DM, hyperlipidemia, and GERD who presented on 03/11/25 with a chief complaint of abdominal pain that started earlier in the morning. Patient was admitted for the observation and possible management of abdominal pain concerning for small bowel obstruction. 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 and characterized as constant and pressured in nature Endorsed vomiting twice prior to arriving in the ED and that his last bowel movement had been around 5 in the morning which was productive of soft, brown, and low-volume stool Endorsed being able to pass flatus while in the ED as well as resolution of the abdominal pain by the time of this data analyst report writer's interview Dx: -03/11 CTAP showed findings possibly suggestive of small bowel obstruction but 03/11 small bowel series was ultimately negative for small bowel obstruction Rx: -Pain control as needed (but issue has seemingly resolved) #Hql-zdhllml-mnnwpjysh T2DM 03/11 admission blood glucose 207, on home metformin 1000 mg p.o. twice daily Rx: -Will consider starting insulin sliding scale if patient's blood glucose becomes uncontrolled #Hypertension 03/11 admission BP 134/89, on home lisinopril 40 mg p.o. daily Patient has largely been normotensive this admission Rx: -Will consider restarting home lisinopril 40 mg p.o. daily if blood pressures become uncontrolled #Leukocytosis 03/11 admission WBC 14.3, likely reactive secondary to acute pain from partial small bowel obstruction Rx: -Continue to monitor CBC Hospital Management: Disposition: Admitted for the observation and possible management of abdominal pain concerning for small bowel obstruction Diet: NPO GI Prophylaxis: Protonix 40 mg IV daily Bowel Prophylaxis: None DVT Prophylaxis: Lovenox 40 mg SC daily CODE STATUS: Full Code I have examined the patient and conferred with my attending, Dr. Perez, and my senior resident, Dr. Muñoz, regarding them. Christiano Horton, DO PGY-1 Internal Medicine
--- NOTE | 2025-03-11 15:00 | XR_ITS ---
Examination: Abdomen AP single view Technique: AP portable supine abdomen, single view Exam date and time: March 11, 2025, 1455 hours INDICATIONS: Abdominal pain and distention this week, 2 1/2-hour delay film post small bowel series today FINDINGS: Most of the contrast in the colon IMPRESSION: Negative for small bowel obstruction
--- NOTE | 2025-03-11 15:26 | PC.NURSE ---
Handoff report given to Cathy ARRIOLA from med-surg. Pt aware of admission to floor. 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
[2025-03-11] MEDS: ACETAMINOPHEN 325 MG TABLET 650 MG PO (19:55)
[2025-03-12] VITALS: BP 123/79; PULSE 67; RESP 17; TEMP 37.3; O2SAT 97
[2025-03-12] MEDS: HYDROcodone/APAP 5/325 TABLET 1 TAB PO (00:16)
[2025-03-12] MEDS: RINGERS LACTATED 1000 ML 1,000 ML 75 ML IV (00:18)
[2025-03-12 04:00] VITALS: BP 120/72; PULSE 56; RESP 16; TEMP 37.2; O2SAT 99
[2025-03-12 06:53] LABS: Alanine Aminotransferase 10 U/L (10-49); Albumin, Serum 4.0 gm/dL (3.5-5.0); Albumin/Globulin Ratio 2.2 (1.2-2.2); Alkaline Phosphatase 89 U/L (46-116); Anion Gap 7 (7-16); Aspartate Amino Transferase 14 U/L (0-34); BUN/Creatinine Ratio 11 Ratio (12-20); Bilirubin,Total 0.4 mg/dL (0.3-1.2); Blood Urea Nitrogen 9 mg/dL (9-23); Calcium 9.0 mg/dL (8.3-10.6); Calcium (Corrected) 9.0 mg/dL (8.5-10.1); Carbon Dioxide 29.9 mMol/L (20.0-31.0); Chloride 105 mMol/L (98-107); Creatinine (Component) 0.8 mg/dL (0.6-1.3); Estimated Creatinine Clearance 92.9 mL/min (>60); Globulin 1.8 gm/dL (2.3-3.5); Glucose 111 mg/dL (74-106); Osmolality,Calculated 282 (275-295); Potassium 4.1 mMol/L (3.4-5.1); Sodium 142 mMol/L (136-145); Total Protein 5.8 gm/dL (5.7-8.2); eGFR > 60 See Note
[2025-03-12 07:55] LABS: Basophils # (Auto) 0.1 Thou/mm3 (0.0-0.2); Basophils % (Auto) 1 % (0-2.5); Eosinophils # (Auto) 0.3 Thou/mm3 (0.0-0.5); Eosinophils % (Auto) 4 % (0-10); Hematocrit 34.7 % (41.0-53.0); Hemoglobin 11.1 g/dL (13.5-16.0); Immature Granulocytes Auto 0.01 Thou/mm3 (0.00-0.00); Lymphocytes # (Auto) 2.0 Thou/mm3 (1.0-4.8); Lymphocytes % (Auto) 30 % (10-50); Mean Corpuscular HGB Conc 32.0 g/dl (31.0-37.0); Mean Corpuscular Hemoglobin 27.2 pg (25.0-35.0); Mean Corpuscular Volume 85 fL (80-100); Monocytes # (Auto) 0.5 Thou/mm3 (0.0-0.8); Monocytes % (Auto) 7 % (0-12); Neutrophils # (Auto) 3.9 Thou/mm3 (1.8-7.7); Neutrophils % (Auto) 58 % (37-80); Nucleated Red Blood Cell # 0.00 Thou/mm3 (0.00-0.00); Nucleated Red Blood Cell % 0 /100 WBC (0); Platelet Count 419 Thou/mm3 (140-440); RDW Standard Deviation 42.0 fL (35.1-43.9); Red Blood Count 4.08 Miln/mm3 (4.50-5.90); White Blood Count 6.7 Thou/mm3 (3.8-10.6)
[2025-03-12 07:58] VITALS: BP 137/81; PULSE 52; RESP 18; TEMP 37.2; O2SAT 97
[2025-03-12] MEDS: ENOXAPARIN SOD INJ 40 MG/0.4 ML SYRINGE SC (08:01)
--- NOTE | 2025-03-12 16:20 | PD.RESPRO ---
Documentation for date of: 03/12/25 Exam Vital Signs Temp Pulse Resp BP Pulse Ox O2 Del Method 98.9 F 52 L 18 137/81 H 97 Room Air 03/12/25 07:58 03/12/25 07:58 03/12/25 07:58 03/12/25 07:58 03/12/25 07:58 03/12/25 07:58 Objective Labs 03/12/25 07:22 03/12/25 05:52 Labs: Laboratory Results - last 24 hr 03/12/25 03/12/25 05:52 07:22 WBC 6.7 D RBC 4.08 L Hgb 11.1 L D Hct 34.7 L MCV 85 MCH 27.2 MCHC 32.0 RDW Std Deviation 42.0 Plt Count 419 D Neut % (Auto) 58 Lymph % (Auto) 30 [place] % (Auto) 7 Eos % (Auto) 4 Baso % (Auto) 1 Neut # (Auto) 3.9 Lymph # (Auto) 2.0 [place] # (Auto) 0.5 Eos # (Auto) 0.3 Baso # (Auto) 0.1 Immature Gran # (Auto) 0.01 H Absolute Nucleated RBC 0.00 Immature Gran % 0 Nucleated RBC % 0 Sodium 142 Potassium 4.1 D Chloride 105 Carbon Dioxide 29.9 Anion Gap 7 BUN 9 Creatinine 0.8 Estim Creat Clear Calc 92.9 eGFR > 60 BUN/Creatinine Ratio 11 L Glucose 111 H D Calculated Osmolality 282 Calcium 9.0 Corrected Calcium 9.0 Total Bilirubin 0.4 AST 14 ALT 10 Alkaline Phosphatase 89 D Total Protein 5.8 Albumin 4.0 D Globulin 1.8 L Albumin/Globulin Ratio 2.2 Quality Measures Quality Measures none
--- NOTE | 2025-03-12 16:21 | ESDS_ITS ---
<Statement entered by Marline Muñoz MD - 03/13/25 08:06> Patient was seen and examined by me personally. I have reviewed the below documentation by the team resident and agree with its findings with any exceptions as below. Discharge plan was discussed with the attending, Dr. Perez. Marline Muñoz, PGY-3 Planned Discharge Date 03/12/25 DS: Providers Provider Date of admission: 03/11/25 11:50 Primary care physician: Debi Taylor PA-C Admitting Provider: Nancy Perez MD Attending Provider on Admission: Nancy Perez MD Attending Provider on DC: Nancy Perez MD Discharging Provider: Christiano Horton, DS: Diagnosis Problem List Completed Was Problem List Reviewed/Reconciled?: Yes Hospital Course Hospital Course Hospital course: Summary: Patient is a 54-year-old male with a PMH of hypertension, bpa-atfoshq-syasgsobl T2DM, hyperlipidemia, and GERD who presented on 03/11/25 with a chief complaint of abdominal pain that started earlier in the morning. Hospital: During patient's hospital course, he underwent CTAP which showed small bowel obstruction but follow-up small bowel series was ultimately negative for small bowel obstruction. General Surgery (Dr. Nuñez) had been consulted prior to SBS results and did not recommend any surgical intervention due to low suspicion for complete SBO or ischemic bowel. By 03/12, patient's symptoms had resolved and he was deemed clinically stabilized and discharged with instructions to follow-up with out-patient colonoscopy to rule out GI malignancy. Patient is safe to discharge. Further discharge instructions below. -Follow-up with PCP within 1 week of discharge. If you do not have appointment, please follow-up with the [facility] with Dr. Ragland. Call [phone] to make an appointment. -Continue to take home medications -Recommeded to take Laxative as needed for constipation over the counter -Return to ED if symptoms persist or return #Small bowel obstruction, partial, resolving #Abdominal pain, resolving #Nonbloody emesis #Jdn-cjtpktv-psvzmczwq T2DM #Hypertension #Leukocytosis Status at Discharge Cognitive/Behavioral Status at Discharge: stable Functional Status at Discharge: independent ambulation Overall Status at Discharge: patient is back to baseline Patient's care plan was discussed with my attending, Dr. Perez, and senior resident, Dr. Muñoz. Christiano Horton, DO Internal Medicine, PGY-1 Time Spent with Patient Time attestation: Total time spent providing and/or coordinating discharge services: Time spent: Greater than 30 minutes Exam Vital Signs Temp Pulse Resp BP Pulse Ox O2 Del Method 98.9 F 52 L 18 137/81 H 97 Room Air 03/12/25 07:58 03/12/25 07:58 03/12/25 07:58 03/12/25 07:58 03/12/25 07:58 03/12/25 07:58 Narrative Exam General: A/O x3, no acute distress. Skin: Warm, dry, intact, no obvious rash. Head: Normocephalic, atraumatic. Eyes: EOMI. Anicteric, vision grossly intact. Ears: No ear pain, no ear discharge, Hearing grossly intact. Nose: No nasal discharge. Mouth/Throat: Oral mucosa moist. No obvious lesions in oropharynx. Cardiovascular: Slightly bradycardic rate and normal rhythm, no murmur, no JVD or carotid bruits. +S1/S2. Respiratory: Bilateral lungs are clear to auscultation, respirations unlabored, no crackles, no wheezing. No accessory muscle use. Gastrointestinal: Hyperactive bowel sounds. Tenderness to palpation of lower abdominal quadrants, particularly the right lower quadrant. Guarding noted. Soft, non-distended, no palpable masses. No rebound tenderness. Peristalsis present. Extremities: Symmetrical, no significant deformities. No edema, no cyanosis, no clubbing. 2+ radial pulse bilaterally, 2+ posterior tibial pulse bilaterally. Neuro: No focal deficits observed. Conversant, moving all extremities. No overt cerebellar signs/incoordination. Psychiatric: Cooperative, appropriate affect. Discharge Plan Plan Patient Disposition: HOME (Self Care) Patient condition on transfer: Stable Care Plan Goals: -Follow-up with PCP within 1 week of discharge. If you do not have appointment, please follow-up with the [facility] with Dr. Ragland. Call [phone] to make an appointment. -Continue to take home medications -Recommeded to take Laxative as needed for constipation over the counter -Return to ED if symptoms persist or return Prescriptions/Referrals Prescriptions/Med Rec: Continued metformin 1,000 mg tablet 1,000 mg PO BID Patient Comments: take 1 tablet by mouth twice a day lisinopril 40 mg tablet 40 mg PO DAILY Patient Comments: take 1 tablet by mouth once daily Referrals: Debi Taylor PA-C [Primary Care Provider] Patient/Caregiver Discharge Instructions Education Materials: Small Bowel Obstruction, Obstruction Intestinal Print Language: Icelandic Stand Alone Forms: [facility]ina Award Info., Patient Portal Info Letter, Work/Release Restrictions Discharge Order Discharge Orders: Discharge (Routine); Ordered 03/12/25 Ordered By: Trey Ragland Quality Discharge Quality Measures VTE prophylaxis
== END 2025-03-12 10:45 | disposition home or self-care (01) ==
LOC: SERX 08:06 → SERHOLD 03-12 07:06 → S3SX 03-12 07:06
PROVIDERS: Student in an Organized Health Care Education/Training Program; Admitting Provider Internal Medicine; Emergency Provider Emergency Medicine; Visit Provider Internal Medicine
DX: K56.600 Partial intestinal obstruction, unspecified as to cause (principal); E11.9 Type 2 diabetes mellitus without complications; I10 Essential (primary) hypertension; D72.829 Elevated white blood cell count, unspecified; E78.5 Hyperlipidemia, unspecified
CPT/HCPCS: 36415; 74018; 74177; 74250; 76705; 80053; 80307; 80320; 81001; 82150; 83605; 83690; 83735; 84145; 84484; 85025; 85610; 85730; 86140; 87086; 93005; 96361; 96365; 96372; 96375; 99284; A4649; G0378; J1650; J2470; J2543; J7120; Q0162; Q9963; Q9967; A9270; G0480